=== PATIENT | female | born 1945 | race Caucasian/White ===

== ENCOUNTER → 2016-10-29 | Outpatient (CLI) | payer OTHER | LOC: KOH-I 12:37 | DX: S69.91XD Unspecified injury of right wrist, hand and finger(s), subsequent encounter (principal); M89.8X3 Other specified disorders of bone, forearm | CPT/HCPCS: 73110 ==

== ENCOUNTER → 2016-11-12 | Outpatient (CLI) | payer OTHER | LOC: KOH-I 13:32 | DX: S69.91XD Unspecified injury of right wrist, hand and finger(s), subsequent encounter (principal); S52.501D Unspecified fracture of the lower end of right radius, subsequent encounter for closed fracture with routine healing | CPT/HCPCS: 73110 ==

== ENCOUNTER → 2020-12-18 | Outpatient (CLI) | payer OTHER ==
[~2020-12-18] VITALS: Ht 147.3 cm; Wt 61.7 kg
== END ==
LOC: OPSV 12:00
DX: M81.0 Age-related osteoporosis without current pathological fracture (principal); S32.000S Wedge compression fracture of unspecified lumbar vertebra, sequela
CPT/HCPCS: 96372

== ENCOUNTER → 2021-07-22 | Outpatient (CLI) | payer OTHER ==
[~2021-07-22] VITALS: Ht 152.4 cm; Wt 54.9 kg
== END ==
LOC: OPSV 07-12 15:00
DX: M81.0 Age-related osteoporosis without current pathological fracture (principal); M48.56XS Collapsed vertebra, not elsewhere classified, lumbar region, sequela of fracture
CPT/HCPCS: 96372

== ENCOUNTER → 2022-02-03 | Outpatient (CLI) | payer OTHER ==
[~2022-02-03] VITALS: Ht 152.4 cm; Wt 54.9 kg
== END ==
LOC: OPSV 11:46
DX: M81.0 Age-related osteoporosis without current pathological fracture (principal); S32.000A Wedge compression fracture of unspecified lumbar vertebra, initial encounter for closed fracture
CPT/HCPCS: 96372